=== PATIENT | male | born 1990 | race Caucasian/White ===

== ENCOUNTER 2022-11-17 14:53 | Emergency (ER) | payer BC, OTHER ==
[2022-11-17 15:02] VITALS: BP 136/85
--- NOTE | 2022-11-17 15:21 | XRAY Report ---
PROCEDURE: Ankle 3 View RT INDICATIONS: Trauma TECHNIQUE: 3 views of the ankle were acquired. COMPARISON: None FINDINGS: Bones: There is a transverse, mildly displaced fracture seen involving the distal fibula. There is in tra-articular involvement. No additional fractures can be seen. The talar dome demonstrates an unremarkable appearance. Soft tissues: Soft tissue swelling is seen laterally. IMPRESSION: Mildly displaced transverse fracture of the distal fibula, with intra-articular involvem ent. Reviewed by: Hemal Quan MD on 11/17/2022 2:19 PM [place] Approved by: Hemal Quan MD on 11/17/2022 2:19 PM [facility] Station ID: [id number]
--- NOTE | 2022-11-17 16:44 | ED Physician Documentation ---
PD HPI LOWER EXT INJURY - Stated complaint Stated Complaint: RT ANKLE INJ - Chief complaint Chief Complaint: Trauma Ext - History obtained from History obtained from: Patient - History of Present Illness PD HPI LOW EXT INJURY LOCATION: Right, Ankle Type of injury: Twist Where injury occurred: Park Timing - onset: Last night Timing - duration: Hours Timing - details: Abrupt onset, Still present Improved by: Rest, Immobilization Worsened by: Moving, Palpating Associated symptoms: Swelling, Discolored Similar symptoms before: Diagnosis (ankle sprain) Recently seen: Not recently seen - Additional information Additional information: 32-year-old male was training on a trail run last night when he twisted his a nkle. He had immediate pain and swelling associated with this but he was able to walk half mile back to his car. This morning when he awoke he had significant swelling and and ecchymosis to the ankle and continues to have pain with poor weight bearing. Review of Systems Constitutional: denies: Fever Respiratory: denies: Cough GI: denies: Vomiting, Diarrhea PD PAST MEDICAL HISTORY - Allergies Allergies/Adverse Reactions: Allergies Allergy/AdvReac Type Severity Reaction Status Date / Time No Known Drug Allergies Allergy Verified 11/17/22 14:59 PD ED PE NORMAL - Vitals Vital signs reviewed: Yes (hypertensive mild) - General General: Alert and oriented X 3, No acute distress, Well developed/nourished - HEENT HEENT: Atraumatic, PERRL, EOMI - Respiratory Respiratory: No respiratory distress - Derm Derm: Normal color, Warm and dry, No rash - Extremities Extremities: Other (The right foot is swollen and ecchymotic extending up into the distal fibular area. Point tenderness over the talofibular ligament and over the distal fibula.) - Neuro Neuro: Alert and oriented X 3, endoscopy support specialist 2-12 intact, No motor deficit, No sensory deficit, Normal speech Eye Opening: Spontaneous Motor: Obeys Commands Verbal: Oriented GCS Score: 15 - Psych Psych: Normal mood, Normal affect Results - Vitals Vitals: Vital Signs - 24 hr 11/17/22 14:59 Temperature 36.5 C Heart Rate 65 Respiratory 18 Rate Blood Pressure 136/85 H O2 Saturation 97 Oxygen O2 Source Room air - Rads (name of study) ankle Radiology: Prelim report reviewed, EMP read indepedently PD Medical Decision Making - ED course Complexity details: reviewed results, re-evaluated patient, considered differential, d/w patient ED course: 32-year-old male presents to the emergency department with an injury to his right ankle that he sustained last night while running on a trail. He has a lot of swelling associated with this and ecchymosis tenderness to the distal fibula and there is a fracture through the distal fibula on plain film. The fracture is nondisplaced and there is no widening of the mortise. He has been able to bear weight on this. Today we are placing him into a walking boot and instructing him to use crutches until he is cleared by orthopedics. Departure - Departure Disposition: 01 Home, Self Care Clinical Impression: Fracture of distal end of right fibula Qualifiers: Encounter type: initial encounter Fracture type: closed Fracture morphology: other fracture Qualified Code(s): S82.831A - Other fracture of upper and lower end of right fibula, initial encounter for closed fracture Condition: Stable Instructions: ED Fx Ankle Lateral Malleolus Follow-Up: Chele Dewitt MD [Provider Admit Priv/Credential] - Comments: Ricardo today it looks like you have fractured the distal end of your fibula. There is no displacement of the fracture and there is no widening of the mortise. Under the best of circumstances he may be able to walk on this fracture early. We have placed you into a walking boot and I would like you to use crutches until your follow-up with the orthopedic surgeon.
== END 2022-11-17 17:00 | disposition home or self-care (01) ==
LOC: ED 14:53
DX: S82.831A Other fracture of upper and lower end of right fibula, initial encounter for closed fracture (principal); X50.1XXA Overexertion from prolonged static or awkward postures, initial encounter; Y93.02 Activity, running; Y92.838 Other recreation area as the place of occurrence of the external cause
CPT/HCPCS: 99283

== ENCOUNTER 2022-11-27 14:45 | Outpatient (CLI) | payer BC ==
--- NOTE | 2022-11-27 16:35 | XRAY Report ---
PROCEDURE: Ankle 3 View RT INDICATIONS: RIGHT ANKLE FRACTURE TECHNIQUE: 3 views of the ankle were acquired. COMPARISON: X-ray ankle 11/17/2022 FINDINGS: Bones: Nondisplaced faint lucency traversing the distal fibula less prominent when compared to prior exam. Ankle mortise is normally aligned. No suspicious bony lesions. Soft tissues: No tibiotalar joint effusion. Achilles tendon appears normal. IMPRESSION: Healing nondisplaced distal fibular fracture. Reviewed by: Peggy Foster MD on 11/27/2022 4:34 PM PST Approved by: Peggy Foster MD on 11/27/2022 4:34 PM PST Station ID: [id number]
== END 2022-11-27 23:59 | disposition home or self-care (01) ==
LOC: DI.WOS 14:45
PROVIDERS: ATTEND Physician Assistant Surgical
DX: S82.831D Other fracture of upper and lower end of right fibula, subsequent encounter for closed fracture with routine healing (principal)

== ENCOUNTER 2022-12-27 16:44 | Outpatient (CLI) | payer BC ==
--- NOTE | 2022-12-27 17:18 | XRAY Report ---
PROCEDURE: Ankle 3 View RT INDICATIONS: RIGHT ANKLE FRACTURE TECHNIQUE: 3 views of the ankle were acquired. COMPARISON: 11/27/2022, 11/17/2022 FINDINGS: Bones: Nondisplaced distal fibular/lateral malleolus fracture is again seen with interval slight heal ing compared to prior study. No new fracture or dislocation. Ankle mortise is normally aligned. No s uspicious bony lesions. Soft tissues: No tibiotalar joint effusion. Achilles tendon appears normal. IMPRESSION: Interval healing at nondisplaced lateral malleolus fracture site. No new fracture or disl ocation. Ankle mortise is congruent. Reviewed by: Sunny Bansal MD on 12/27/2022 5:17 PM PST Approved by: Sunny Bansal MD on 12/27/2022 5:17 PM PST Station ID: [id number]
== END 2022-12-27 16:46 | disposition home or self-care (01) ==
LOC: DI.WOS 16:44
PROVIDERS: ATTEND Physician Assistant Surgical
DX: S82.61XD Displaced fracture of lateral malleolus of right fibula, subsequent encounter for closed fracture with routine healing (principal)